=== PATIENT | female | born 1990 | race Caucasian/White ===

== ENCOUNTER 2016-10-15 12:55 | Inpatient (IN) | payer OTHER ==
[~2016-10-15] VITALS: Ht 162.6 cm; Wt 64.4 kg
[~2016-10-15 12:55] MED LIST: IUD'IUD PV; MULT-513 PO
[2016-10-15 14:24] LABS: BASO % 0.6 %; BASO ABS # 0.04 K/uL (0-0.2); COMPLETE YES; EOS % 2.9 %; HEMATOCRIT 39.2 % (37-47); IG% 0.2 %; LYMPH % 42.8 %; LYMPH ABS # 2.85 K/uL (1.2-3.4); MEAN CELL VOLUME 89.5 fL (80-100); MEAN CORPUSCULAR HEMOGLOBIN 32.2 pg (25-34); MEAN PLATELET VOLUME 9.5 fL (7.4-10.4); MONO % 7.4 %; NEUT % 46.1 %; PLATELET COUNT 212 K/uL (130-400); RED BLOOD COUNT 4.38 M/uL (4.2-5.4); WHITE BLOOD COUNT 6.66 K/uL (4.8-10.8)
[2016-10-15 14:39] LABS: URINE APPEARANCE CLEAR (CLEAR); URINE BILIRUBIN NEG (NEG); URINE COLOR YELLOW; URINE NITRITE NEG (NEG); URINE PH >= 9.0 (4.5-7.5); URINE SPECIFIC GRAVITY 1.017 (1.000-1.030); UROBILINOGEN NEG (NEG); ZZUR CULT IF INDIC CLEAN CATCH NO
[2016-10-15 14:43] LABS: BUN/CREATININE RATIO 8.6 (10-20); CREATININE 0.69 mg/dl (0.60-1.20); POTASSIUM 4.1 mmol/L (3.5-5.1)
[2016-10-15 15:02] LABS: MANUAL MICROSCOPIC REQUIRED? NO; REVIEW REQ? NO
[2016-10-15 15:06] LABS: ACETAMINOPHEN < 2 ug/ml (10-30)
[2016-10-15 15:08] LABS: BENZODIAZEPINE, URINE NEG (NEG); COCAINE,URINE NEG (NEG); PHENCYCLIDINE, URINE NEG (NEG)
[2016-10-15] MEDS ORDERED: SODIUM CHLORIDE 0.65% NA SOLN 45 ML (OCEAN) PRN (17:30)
[2016-10-15] MEDS ORDERED: hydrOXYzine HCL 25 MG TAB PO PRN ×2 (17:30)
[2016-10-15] MEDS ORDERED: BISMUTH SUBSALICYLATE PER ML OMNICELL CHARGE PO PRN (17:30)
[2016-10-15] MEDS ORDERED: ACETAMINOPHEN 325 MG TAB PO PRN (17:30)
[2016-10-15] MEDS ORDERED: MAGNESIUM HYDROXIDE SUSP 30 ML UDC PO PRN (17:30)
[2016-10-15] MEDS ORDERED: ALUMINUM/MAGNESIUM SUSP 30 ML UDC PO PRN (17:30)
[2016-10-15] MEDS ORDERED: NICOTINE 21 MG/24 HR TDSY TD STA (17:42)
[2016-10-15] MEDS ORDERED: ACETAMINOPHEN 325 MG TAB PO STA (17:47)
--- NOTE | 2016-10-15 17:49 | EMERGENCY ROOM VISIT NOTE ---
History First contact with patient: 13:05 Chief Complaint: MENTAL HEALTH EVALUATION Stated Complaint: "VERIFY POSITIVE TEST RESULT" History of Present Illness The patient is a 26 year old female who presents to the Emergency Room stating she would like psychiatric help. The patient states that she was sent here by her psychologist, Dr. Elder Agarwal who she saw earlier today. She said that when she was in her psychologist's office she was crying uncontrollably. The patient states that she told her psychologist that she was diagnosed with hepatitis C a month ago and did not seek any medical treatment. She states that she was told that that is "passive suicide attempt". The patient denies any other means of harming herself or harming any other persons. The patient states that she has been very depressed for a long time. She states that she thinks she needs medication. She states that she does not want to get out of bed. She does admit to a normal appetite and is eating properly. The patient states that she lives with her parents and has a good relationship with her parents. The patient states she is currently unemployed. The patient states that she thinks that she has been depressed since she was seen in the hospital in July 2013. The patient states that she did not agree with her diagnosis of bipolar disorder. The patient denies any symptoms of anxiety. The patient states after she was discharged she only took the medication for approximately 1 week since it made her nauseated. The patient has not had any treatment since that time. The patient states that she has been self-medicating herself with illicit drugs she would not give me the name of the drugs. She does admit to some intermittent marijuana use but that is not the major drunk she has been using. She also admits to tobacco use but currently is denying any alcohol use. The patient's family physician is through [facility]. The patient states that she got a letter from [facility] where she donated plasma that she was hep C positive. The patient refused that we could contact her psychologist about sending her here today. Review of Systems 10 system review was performed and was negative unless stated otherwise history of present illness. Past Medical/Surgical History Medical Problems: (1) Borderline Personality Disorder (2) Depression Family History FH: heart disease Social History Smoking Status: Current Every Day Smoker Alcohol Use: none Drug Use: none Marital Status: single Housing Status: lives with roommate Occupation Status: [employer] student Current/Historical Medications No Active Prescriptions or Reported Meds Allergies Coded Allergies: No Known Allergies (Verified Allergy, Unknown, 08/11/07) Physical Exam Vital Signs Date Time Temp Pulse Resp B/P Pulse Ox O2 Delivery O2 Flow Rate FiO2 10/15/16 12:59 36.4 83 16 123/79 99 Room Air Physical Exam GENERAL: 26-year-old white female appears in no acute distress. She appears well groomed. MENTAL Status: Alert and oriented 3. The patient is non-tearful. The patient answers questions appropriately but does avoid many questions and states that we do not need to know certain things about her. EYES: PERRLA. EOMs intact. EARS: Canals clear. TMs without fluid level noted. NECK: Supple, no lymphadenopathy noted. No carotid bruits noted. LUNGS: Clear auscultation without wheezes rales or rhonchi. CARDIAC: Regular rate and rhythm without murmur. Pulses is full and equal throughout. ABDOMEN: Positive bowel sounds all 4 quadrants. Soft, nontender to palpation without organomegaly or masses. NEURO:Cranial nerves two through 12 intact. Cerebellar function intact with [id number]. Fine motor intact with alternating finger motions. MUSCULOSKELETAL: Muscle strength is 5 out of 5 bilateral upper and lower extremities and symmetrical. SKIN: There is scarring noted on the left wrist and forearm consistent with prior cutting. Medical Decision & Procedures Laboratory Results 10/15/16 14:04 Red Blood Count 4.38, Mean Corpuscular Volume 89.5, Mean Corpuscular Hemoglobin 32.2, Mean Corpuscular Hemoglobin Concent 36.0, Mean Platelet Volume 9.5, Neutrophils (%) (Auto) 46.1, Lymphocytes (%) (Auto) 42.8, Monocytes (%) (Auto) 7.4, Eosinophils (%) (Auto) 2.9, Basophils (%) (Auto) 0.6, Neutrophils # (Auto) 3.08, Lymphocytes # (Auto) 2.85, Monocytes # (Auto) 0.49, Eosinophils # (Auto) 0.19, Basophils # (Auto) 0.04 10/15/16 14:04 Test 10/15/16 13:20 10/15/16 14:04 10/15/16 15:45 Urine Color YELLOW Urine Appearance CLEAR (CLEAR) Urine pH >= 9.0 (4.5-7.5) Urine Specific [place] 1.017 (1.000-1.030) Urine Protein NEG (NEG) Urine Glucose (UA) NEG (NEG) Urine Ketones NEG (NEG) Urine Occult Blood NEG (NEG) Urine Nitrite NEG (NEG) Urine Bilirubin NEG (NEG) Urine Urobilinogen NEG (NEG) Urine Leukocyte Esterase NEG (NEG) Urine Test NEG (NEG) Urine Opiates Screen NEG (NEG) Urine Methadone, Qualitative NEG (NEG) Urine Barbiturates NEG (NEG) Urine Phencyclidine (PCP) Level NEG (NEG) Ur Amphetamine/Methamphetamine NEG (NEG) MDMA (Ecstasy) Screen POS (NEG) Urine Benzodiazepines Screen NEG (NEG) Urine Cocaine Metabolite NEG (NEG) Urine Marijuana (THC) POS (NEG) White Blood Count 6.66 K/uL (4.8-10.8) Red Blood Count 4.38 M/uL (4.2-5.4) Hemoglobin 14.1 g/dL (12.0-16.0) Hematocrit 39.2 % (37-47) Mean Corpuscular Volume 89.5 fL (80-100) Mean Corpuscular Hemoglobin 32.2 pg (25-34) Mean Corpuscular Hemoglobin Concent 36.0 g/dl (32-36) Platelet Count 212 K/uL (130-400) Mean Platelet Volume 9.5 fL (7.4-10.4) Neutrophils (%) (Auto) 46.1 % Lymphocytes (%) (Auto) 42.8 % Monocytes (%) (Auto) 7.4 % Eosinophils (%) (Auto) 2.9 % Basophils (%) (Auto) 0.6 % Neutrophils # (Auto) 3.08 K/uL (1.4-6.5) Lymphocytes # (Auto) 2.85 K/uL (1.2-3.4) Monocytes # (Auto) 0.49 K/uL (0.11-0.59) Eosinophils # (Auto) 0.19 K/uL (0-0.5) Basophils # (Auto) 0.04 K/uL (0-0.2) RDW Standard Deviation 41.6 fL (36.4-46.3) RDW Coefficient of Variation 12.8 % (11.5-14.5) Immature Granulocyte % (Auto) 0.2 % Immature Granulocyte # (Auto) 0.01 K/uL (0.00-0.02) Anion Gap 8.0 mmol/L (3-11) Est Creatinine Clear Calc Drug Dose 106.8 ml/min Estimated GFR () 139.2 Estimated GFR (Non- 120.1 BUN/Creatinine Ratio 8.6 (10-20) Calcium Level 9.0 mg/dl (8.5-10.1) Salicylates Level < 1.7 mg/dl (2.8-20) Acetaminophen Level < 2 ug/ml (10-30) Ethyl Alcohol mg/dL < 3.0 mg/dl (0-3) Hepatitis C Antibody PRELIM POS (NEG) ECG Indication: other (mental health clearance) Rhythm: normal sinus Findings: no acute ischemic change ED Course The patient was evaluated. The patient's EMR was reviewed. Patient was diagnosed with bipolar disorder at her left admission. EKG was ordered and interpreted as above., medical alcohol, salicylate, acetaminophen levels were ordered. Urine tox screen was ordered. CBC and differential, renal profile was ordered. Urine and urinalysis was ordered. The spring encaser evaluated the patient and the patient told the spring encaser that she was doing cocaine and moly. She felt she had to take the meds to feel "up". She told her that she did not one of the lip but she did not actively want to commit suicide and therefore she was taking the illicit drugs to possibly kill herself. Labs are reviewed. CBC and differential and renal profile was unremarkable. Urine tox screen was positive for ecstasy and marijuana. Urine was negative. The patient was evaluated by 3 S. and they felt that the patient needed to be admitted. The patient was developing a headache before admission and therefore she was given Tylenol 650 mg by mouth for headache. Medical Decision Differential diagnosis include bipolar disorder, depression, suicidal Impression Primary Impression: Suicidal ideation Additional Impression: Depression Departure Information Dispostion Mental Health Acute Care Condition GOOD Prescriptions No Active Prescriptions or Reported Meds Referrals No Doctor, Assigned (PCP) Patient Instructions A Signature Page, [employer]
[2016-10-15 18:05] VITALS: O2SAT 99
[2016-10-15 19:14] VITALS: BP 110/76; PULSE 72; TEMP 36.7; Ht 162.6 cm; Wt 64.4 kg
[2016-10-16 06:33] VITALS: BP_SYST 93; BP_SYST 99; BP_DIAS 58; BP_DIAS 66; PULSE 59; PULSE 67; TEMP 36.5
[2016-10-16] MEDS ORDERED: NICOTINE 21 MG/24 HR TDSY TD SCH (09:00)
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
--- NOTE | 2016-10-16 12:27 | Psychiatric History & Physical ---
History Identifying Data Georges Meyers is a 26-year-old female who currently lives in [] [alone] with []. Georges Meyers was admitted on a [201 voluntary] [302 involuntary] commitment. Patient is admitted from [home] [transfer from the medical floor]. The patient was brought to the ED by the [police] [family] [ambulance] [self transport]. Information provided by the patient is considered to be [reliable] [unreliable]. Chief Complaint "[]". Allergies Allergies: Coded Allergies: No Known Allergies (Verified Allergy, Unknown, 08/11/07) Home Medications No Active Prescriptions or Reported Meds Family History FH: heart disease Substance History Substance Use Past 12 Months: Hx of Inhalent Use: No Hx of Organic Substance Use: Yes (marijuana 3x/month "at the end of the prescription binges to come down") Hx of Illegal/Street Drug Use: Yes ("I think I've done bath salts sold to me as denisha" several times) Hx of Over the Counter Med Use: No Hx of Prescription Med Use: Yes (Ritalin, Xanax, Adderall- "excessive amnts until it's gone"1x/week in binge) Examination Vital Signs Vital Signs Past 12 Hours Date Time Temp Pulse Resp B/P Pulse Ox O2 Delivery O2 Flow Rate FiO2 10/16/16 06:33 36.5 67 16 93/58 59 99/66 Laboratory Results Last 24 Hours Test 10/15/16 13:20 10/15/16 14:04 10/15/16 15:45 Urine Color YELLOW Urine Appearance CLEAR Urine pH >= 9.0 Urine Specific [place] 1.017 Urine Protein NEG Urine Glucose (UA) NEG Urine Ketones NEG Urine Occult Blood NEG Urine Nitrite NEG Urine Bilirubin NEG Urine Urobilinogen NEG Urine Leukocyte Esterase NEG Urine Test NEG Urine Opiates Screen NEG Urine Methadone, Qualitative NEG Urine Barbiturates NEG Urine Phencyclidine (PCP) Level NEG Ur Amphetamine/Methamphetamine NEG MDMA (Ecstasy) Screen POS Urine Benzodiazepines Screen NEG Urine Cocaine Metabolite NEG Urine Marijuana (THC) POS White Blood Count 6.66 K/uL Red Blood Count 4.38 M/uL Hemoglobin 14.1 g/dL Hematocrit 39.2 % Mean Corpuscular Volume 89.5 fL Mean Corpuscular Hemoglobin 32.2 pg Mean Corpuscular Hemoglobin Concent 36.0 g/dl Platelet Count 212 K/uL Mean Platelet Volume 9.5 fL Neutrophils (%) (Auto) 46.1 % Lymphocytes (%) (Auto) 42.8 % Monocytes (%) (Auto) 7.4 % Eosinophils (%) (Auto) 2.9 % Basophils (%) (Auto) 0.6 % Neutrophils # (Auto) 3.08 K/uL Lymphocytes # (Auto) 2.85 K/uL Monocytes # (Auto) 0.49 K/uL Eosinophils # (Auto) 0.19 K/uL Basophils # (Auto) 0.04 K/uL RDW Standard Deviation 41.6 fL RDW Coefficient of Variation 12.8 % Immature Granulocyte % (Auto) 0.2 % Immature Granulocyte # (Auto) 0.01 K/uL Sodium Level 142 mmol/L Potassium Level 4.1 mmol/L Chloride Level 107 mmol/L Carbon Dioxide Level 27 mmol/L Anion Gap 8.0 mmol/L Blood Urea Nitrogen 6 mg/dl Creatinine 0.69 mg/dl Est Creatinine Clear Calc Drug Dose 106.8 ml/min Estimated GFR () 139.2 Estimated GFR (Non- 120.1 BUN/Creatinine Ratio 8.6 Random Glucose 85 mg/dl Calcium Level 9.0 mg/dl Salicylates Level < 1.7 mg/dl Acetaminophen Level < 2 ug/ml Ethyl Alcohol mg/dL < 3.0 mg/dl Hepatitis C Antibody PRELIM POS Impression / Recommendations Protective Factors Assessment Employed: No CPT Code Initial Hospital Care: [id number]
[2016-10-16] MEDS ORDERED: ESCITALOPRAM OXALATE 10 MG TAB PO ONE (13:00)
[2016-10-16] MEDS ORDERED: THIAMINE HCL 100 MG TAB PO SCH (13:00)
[2016-10-16] MEDS ORDERED: LORAZEPAM 1 MG TAB PO PRN (13:00)
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
[2016-10-16 16:02] VITALS: BP 99/66; PULSE 67; TEMP 36.5
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
[2016-10-16] MEDS ORDERED: LXP10 PO (18:42)
[2016-10-16 19:55] VITALS: BP 99/66; PULSE 67; TEMP 36.5; O2SAT 99
[2016-10-17] MEDS ORDERED: ESCITALOPRAM OXALATE 10 MG TAB PO SCH (09:00)
[2016-10-19 11:32] LABS: HEPATITIS C RNA TMA QUAL Detected
== END 2016-10-16 21:10 | DRG 885 ==
LOC: C.EDB 12:55 → C.MHU 17:32
PROVIDERS: ADMIT Psychiatry & Neurology Child & Adolescent Psychiatry; ATTEND Psychiatry & Neurology Child & Adolescent Psychiatry
DX: F31.81 Bipolar II disorder (principal); R45.851 Suicidal ideations; Z82.49 Family history of ischemic heart disease and other diseases of the circulatory system; Z91.14 Patient's other noncompliance with medication regimen; I45.10 Unspecified right bundle-branch block; B19.20 Unspecified viral hepatitis C without hepatic coma; Z62.810 Personal history of physical and sexual abuse in childhood; F60.3 Borderline personality disorder; F19.10 Other psychoactive substance abuse, uncomplicated; F17.210 Nicotine dependence, cigarettes, uncomplicated

== ENCOUNTER 2018-02-24 10:23 | Emergency (ER) | payer OTHER ==
[~2018-02-24] VITALS: Ht 162.6 cm; Wt 68.0 kg
[~2018-02-24 10:23] MED LIST changes: -IUD'IUD PV; +LXP10 PO; -MULT-513 PO
[2018-02-24 10:33] VITALS: TEMP 36.8; Ht 162.6 cm; Wt 68.0 kg
[2018-02-24] MEDS ORDERED: MoRPHine SULFATE 4 MG/ML 1 ML CARP\\VIAL IV STA (10:49)
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
[2018-02-24 13:44] VITALS: BP 123/85; PULSE 80; O2SAT 100
== END 2018-02-24 13:45 | disposition home or self-care (01) ==
LOC: EDBD 10:23 → C.EDA 10:23
DX: T14.8XXA Other injury of unspecified body region, initial encounter (principal); V13.9XXA Unspecified pedal cyclist injured in collision with car, pick-up truck or van in traffic accident, initial encounter; Y92.410 Unspecified street and highway as the place of occurrence of the external cause; F32.9 Major depressive disorder, single episode, unspecified; F19.10 Other psychoactive substance abuse, uncomplicated; F60.3 Borderline personality disorder